=== PATIENT | male | born 1995 | race Two or more races ===

== ENCOUNTER 2024-11-09 23:54 | Emergency (ER) | payer MEDICAID, OTHER ==
[~2024-11-09] VITALS: Ht 165.1 cm; Wt 98.0 kg
[2024-11-10] MEDS ORDERED: ACET500T58 PO (02:24)
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
--- NOTE | 2024-11-10 03:22 | DVH ---
CLINICAL INDICATION: right foot pain TECHNIQUE: XY R FOOT 3 VIEW XRAY, XY R ANKLE 3 VIEW Comparison: None FINDINGS/IMPRESSION: : There is no evidence of acute fracture or dislocation. Soft tissues are unremarkable.
[2024-11-10 03:53] VITALS: BP 147/83; PULSE 77; RESP 20; TEMP 98.7; O2SAT 98
== END 2024-11-10 04:19 | disposition home or self-care (01) ==
LOC: ER 23:54
DX: S93.401A Sprain of unspecified ligament of right ankle, initial encounter (principal); S93.601A Unspecified sprain of right foot, initial encounter; V29.99XA Rider (driver) (passenger) of other motorcycle injured in unspecified traffic accident, initial encounter; Y93.89 Activity, other specified; Y92.410 Unspecified street and highway as the place of occurrence of the external cause; Y99.8 Other external cause status
CPT/HCPCS: 73610; 73630